=== PATIENT | female | born 1945 | race Caucasian/White ===

== ENCOUNTER → 2016-10-14 | Outpatient (CLI) | payer BC ==
[~2016-10-14] MED LIST: ASCO500T3 PO; CONJ0.3T3 PO; HYDC25 PO; LISI5TAB3 PO; MAGN400T6 PO; MCR25 PO; MELOPOW PO; METF1TAB53 PO; OFLO0.3S4 OPR; PRED1SUS3 OPR; SIMV80TA2 PO; SYMIN160 INH
[2016-10-14 10:05] LABS: ESTIMATED AVERAGE GLUCOSE 186 mg/dl; HA1C FLAG Normal (Normal)
== END | disposition home or self-care (01) ==
LOC: C.LAB1850 08:33
PROVIDERS: ATTEND Internal Medicine
DX: J45.909 Unspecified asthma, uncomplicated (principal)

== ENCOUNTER → 2016-11-08 | Outpatient (CLI) | payer BC ==
--- NOTE | 2016-11-08 10:11 | DIAGNOSTIC IMAGING REPORT ---
KNEES, AP STANDING, RIGHT KNEE 3 VIEWS, LEFT KNEE 3 VIEWS CLINICAL HISTORY: ARTHRITIS. Bilateral knee pain. COMPARISON STUDY: Right knee 07/03/2013. FINDINGS: No fracture or dislocation within the right or left knee. Bilateral chondrocalcinosis and tricompartmental marginal osteophytes. Mild cartilage space narrowing within the lateral compartment of the left knee. Trace bilateral knee effusions. Calcifications within the suprapatellar joint space on the left may be due to intra-articular loose bodies. IMPRESSION: Bilateral chondrocalcinosis with superimposed mild tricompartmental osteoarthritis within the knees. There are also trace bilateral knee effusions. Electronically signed by: Ronnell Todd M.D. 11/08/2016 10:09 AM Dictated Date/Time: 11/08/2016 10:06 AM
--- NOTE | 2016-11-08 10:12 | DIAGNOSTIC IMAGING REPORT ---
LEFT ANKLE 3 VIEWS HISTORY: Left ankle pain. M25.569 Joint pain, kneeL40.50 Psoriatic [id number] Lumba COMPARISON: None. FINDINGS: There is no fracture or dislocation. Mild soft tissue swelling. No bony erosions. Mild cartilage space narrowing at the tibiotalar joint consistent with degenerative change. No radiopaque foreign bodies. Plantar heel spur. Calcification within the Achilles tendon consistent with a chronic tendinosis. IMPRESSION: Mild soft tissue swelling and mild osteoarthritis within the left ankle. No fractures. Chronic Achilles tendinosis. Electronically signed by: Ronnell Todd M.D. 11/08/2016 10:10 AM Dictated Date/Time: 11/08/2016 10:09 AM
--- NOTE | 2016-11-08 10:13 | DIAGNOSTIC IMAGING REPORT ---
LEFT HAND MIN 3 VIEWS ROUTINE CLINICAL HISTORY: Left hand pain. Psoriatic arthropathy. COMPARISON: None. DISCUSSION: There is chondrocalcinosis at the level of the trigone fibrocartilage. There are osteoarthritic changes at the level the first carpometacarpal joint and interphalangeal joint of the thumb. There are no acute fractures. There is no erosive disease. There are subtle sclerotic changes involving the chito of the distal phalanges. IMPRESSION: 1. No acute fractures or dislocations 2. Degenerative type changes most pronounced the level of the first carpal metacarpal joint 3. No evidence of erosive disease 4. Calcification of the triangle fibrocartilage 5. Slight sclerosis involving the chito of the distal phalanges Electronically signed by: Raghu Roque M.D. 11/08/2016 10:10 AM Dictated Date/Time: 11/08/2016 10:09 AM
== END | disposition home or self-care (01) ==
LOC: C.RAD1850 09:25
PROVIDERS: ATTEND Internal Medicine Rheumatology
DX: L40.50 Arthropathic psoriasis, unspecified (principal); M25.569 Pain in unspecified knee; M54.16 Radiculopathy, lumbar region; M11.261 Other chondrocalcinosis, right knee; M11.262 Other chondrocalcinosis, left knee; M18.12 Unilateral primary osteoarthritis of first carpometacarpal joint, left hand; M24.132 Other articular cartilage disorders, left wrist; M76.62 Achilles tendinitis, left leg

== ENCOUNTER → 2017-02-06 | Outpatient (CLI) | payer BC | END | disposition home or self-care (01) | LOC: C.RDSM 13:13 | PROVIDERS: ATTEND Physical Medicine & Rehabilitation Sports Medicine | DX: M17.0 Bilateral primary osteoarthritis of knee (principal) ==

== ENCOUNTER → 2017-04-06 | Outpatient (CLI) | payer BC ==
[2017-04-06 09:37] LABS: HEMATOCRIT 40.3 % (37-47); MEAN CELL VOLUME 84.7 fL (80-100); MEAN CORPUSCULAR HEMOGLOBIN 28.8 pg (25-34); MEAN PLATELET VOLUME 10.8 fL (7.4-10.4); PLATELET COUNT 268 K/uL (130-400); RED BLOOD COUNT 4.76 M/uL (4.2-5.4)
[2017-04-06 09:45] LABS: URINE APPEARANCE CLEAR (CLEAR); URINE BILIRUBIN NEG (NEG); URINE COLOR YELLOW; URINE EPITHELIAL CELL AUTO >30 /lpf (0-5); URINE NITRITE NEG (NEG); URINE PH 6.5 (4.5-7.5); UROBILINOGEN NEG (NEG); ZZUR CULT IF INDIC CLEAN CATCH YES
[2017-04-06 09:54] LABS: ESTIMATED AVERAGE GLUCOSE 177 mg/dl; HA1C FLAG Normal (Normal)
[2017-04-06 10:02] LABS: MANUAL MICROSCOPIC REQUIRED? NO; REVIEW REQ? NO
[2017-04-06 10:16] LABS: CHOLESTEROL/HDL RATIO 3.3; THYROID STIMULATING HORMONE 1.87 uIu/ml (0.300-4.500)
== END | disposition home or self-care (01) ==
LOC: C.LAB1850 08:03
PROVIDERS: ATTEND Internal Medicine
DX: N20.0 Calculus of kidney (principal); E11.9 Type 2 diabetes mellitus without complications; E78.00 Pure hypercholesterolemia, unspecified; I10 Essential (primary) hypertension

== ENCOUNTER → 2017-10-13 | Outpatient (CLI) | payer OTHER ==
[2017-10-13 10:29] LABS: HEMOGLOBIN A1C 7.9 % (4.5-5.6)
== END | disposition home or self-care (01) ==
LOC: C.LAB1850 07:46
PROVIDERS: ATTEND Internal Medicine
DX: E78.00 Pure hypercholesterolemia, unspecified (principal)

== ENCOUNTER → 2017-11-03 | Outpatient (CLI) | payer OTHER ==
--- NOTE | 2017-11-06 08:07 | MAMMOGRAPHY REPORT ---
BILATERAL DIGITAL SCREENING MAMMOGRAM TOMOSYNTHESIS WITH CAD: 11/03/2017 CLINICAL HISTORY: Routine screening. Patient has no complaints. TECHNIQUE: Breast tomosynthesis in addition to standard 2D mammography was performed. Current study was also evaluated with a Computer Aided Detection (CAD) system. COMPARISON: Comparison is made to exams dated: 05/12/2016 mammogram and 05/11/2009 mammogram - [facility]. BREAST COMPOSITION: The tissue of both breasts is heterogeneously dense, which may obscure small mas ses. FINDINGS: There are grouped calcifications within the right 12:00 breast, for which magnification vie ws are recommended for further evaluation. Additionally, there are other calcifications seen within the left breast which appear more scattered in distribution, however, spot magnification views are re commended. Additionally, there is an asymmetry within the right medial breast middle depth on the cc view, for which spot compression tomosynthesis views and possible breast ultrasound are recommended. The remainder of both breasts are stable compared to prior exams, without suspicious masses, calcific ations, or areas of architectural distortion noted. IMPRESSION: ACR BI-RADS CATEGORY 0: INCOMPLETE EVALUATION: NEED ADDITIONAL IMAGING EVALUATION Bilateral breast calcifications and right breast asymmetry, for which additional imaging evaluation i s recommended. The patient will be called to schedule an appointment. Approximately 10% of breast cancers are not detected with mammography. A negative mammographic report should not delay biopsy if a clinically suggestive mass is present. Harmony Nesbitt M.D. /:11/03/2017 16:27:44 Outsoles Channel Opener: Shirlene ADKINS(Saloni)(Jules)(JAYMIE), [facility] letter sent: Addl Imaging 0 BI-RADS Code: ACR BI-RADS Category 0: Incomplete Evaluation: Need Additional Imaging Evaluation
== END | disposition home or self-care (01) ==
LOC: C.MAMM 11:06
PROVIDERS: ATTEND Internal Medicine
DX: Z12.31 Encounter for screening mammogram for malignant neoplasm of breast (principal); R92.1 Mammographic calcification found on diagnostic imaging of breast

== ENCOUNTER → 2017-11-14 | Outpatient (CLI) | payer OTHER ==
--- NOTE | 2017-11-14 15:22 | MAMMOGRAPHY REPORT ---
BILATERAL DIGITAL DIAGNOSTIC MAMMOGRAM TOMOSYNTHESIS AND TARGETED RIGHT ULTRASOUND: 11/14/2017 CLINICAL HISTORY: 72-year-old woman called back from screening mammography for bilateral microcalcifi cations and right medial asymmetry. TECHNIQUE: Spot magnification CC and ML views of each breast; spot compression tomosynthesis right CC and MLO views were obtained. COMPARISON: Comparison is made to exams dated: 11/03/2017 mammogram, 05/12/2016 mammogram, 05/11/2009 mammogram, 05/02/2006 mammogram, and 05/26/2003 mammogram - [facility]. BREAST COMPOSITION: The tissue of both breasts is heterogeneously dense, which may obscure small mas ses. FINDINGS: The spot magnification views of the right breast demonstrates a 4.8 mm cluster of amorphous microcalcifications in the 12:00 middle one third of the breast, with associated asymmetry best appr eciated in the CC projection. These calcifications are increasingly conspicuous comparing to prior m ammograms and are indeterminate. Spot magnification views of the left breast demonstrate a few benign rim calcifications a loose group ing of round microcalcifications in the middle one third of the breast along the posterior nipple janice e on the cc view and a small grouping of faint punctate microcalcifications in the far posterior left breast along the posterior nipple line on the cc view. These are not definitely seen in the ML proj ection. No dominant suspicious cluster of calcifications is currently seen in the left breast. No o bvious mass or architectural distortion. The spot compression tomosynthesis views of the right breast demonstrate 2 probable oval circumscribe d masses in the lower inner right breast. Further evaluation with ultrasound was performed. Targeted ultrasound was performed in the medial right breast including the 12:00 and 6:00 axes. In t he 3:00 breast, 1 cm from the nipple, there is a round oval circumscribed anechoic benign simple cyst measuring 3.8 x 3.6 x 3.5 mm. Another oval cyst versus focal duct ectasia in the 1:00 right breast, 2 cm from the nipple measures 8.6 x 2.6 x 8.1 mm. There is duct ectasia in the retroareolar right b reast as well. There is fusiform prominence of a duct versus a cyst in the 1230 right breast, 1 cm f rom the nipple with internal echogenic debris and punctate reflectors, likely representing clustered microcalcifications. In total this cystic-appearing mass with internal debris measures 6.2 x 3.0 x 7 .8 mm and this location may correlate with the clustered amorphous calcifications seen mammographical ly. Therefore, could perform ultrasound-guided core biopsy and specimen radiography of this lesion a nd assess post procedure mammograms to ensure it aligns with the mammographic calcifications. This c ould represent an intraductal mass such as a papilloma. DCIS is another consideration for an intracy stic/intraductal mass. IMPRESSION: ACR BI-RADS CATEGORY 4: SUSPICIOUS, TARGETED ULTRASOUND ACR BI-RADS CATEGORY 4: SUSPICIO US 1. There is an indeterminate 4.8 mm cluster of amorphous microcalcifications in the 12:[address], that is thought to be identified in the 12:30 right breast, 1 cm from the nipple, on ultrasound i n which the calcifications appear to be located within a cyst or dilated duct. Ultrasound-guided cor e biopsy and specimen radiography is recommended. Correlation with postprocedure mammograms is also recommended to ensure this lesion correlates with the mammographic calcifications. 2. The persistent circumscribed mass versus masses in the medial right breast mammographically are t hought to correspond with areas of focal duct ectasia and benign simple cysts on ultrasound. 3. There are loose groupings of round and punctate microcalcifications in the left breast along the posterior nipple line on the CC view that probably represent benign fibrocystic change, but were not clearly seen on prior mammograms to ensure long-term stability. Pending benign pathology results in the right breast, would recommend short interval follow-up left diagnostic mammograms including spot magnification views to ensure stability of the left breast calcifications. These results and recommendations were discussed with the patient at the time of the exam. She tenta tively scheduled the right breast biopsy prior to leaving our department. Approximately 10% of breast cancers are not detected with mammography. A negative mammographic report should not delay biopsy if a clinically suggestive mass is present. Tessie Lemus M.D. ay/:11/14/2017 14:50:31 Real Estate Valuer: Valeria GARBER)Lilia), [facility] letter sent: Abnormal 4/5 BI-RADS Code: ACR BI-RADS Category 4: Suspicious Ultrasound BI-RADS: ACR BI-RADS Category 4: Suspici ous
== END | disposition home or self-care (01) ==
LOC: C.MAMM 08:21
PROVIDERS: ATTEND Internal Medicine
DX: R92.0 Mammographic microcalcification found on diagnostic imaging of breast (principal); R92.8 Other abnormal and inconclusive findings on diagnostic imaging of breast

== ENCOUNTER → 2017-11-22 | Outpatient (CLI) | payer OTHER ==
--- NOTE | 2017-11-22 09:33 | Discharge Instructions ---
Discharge Instructions Procedure Procedure Date: November 22, 2017. Reason for visit: Right Intracystic Mass W/Calcs. Discharge Discharge Date: November 22, 2017. Discharge Diagnosis: status post breast biopsy Instructions Activity Recommendations: Additional Limitations (see below) Return to School/Work: no limitations Recommended Home Diet: No Limitations Provider Instructions: ACTIVITY RECOMMENDATIONS: * No lifting, pushing, pulling or exercising the affected side for three days. RETURN TO SCHOOL/WORK: * You may return to work/school after the procedure, but do not perform any strenuous activities for 24 to 48 hours. MEDICATIONS: * Tylenol (two 325 mg) every four to six hours if needed for mild pain (if not allergic to Tylenol). DIET: * Resume previous diet. SPECIAL CARE INSTRUCTIONS: * Keep biopsy site dry for 24 hours. May shower after 24 hours, but do not soak (bathe) incision. * May remove Tegaderm (plastic patch) tomorrow AFTER showering. * Leave the steri-strips on for one week. Allow the steri-strips to fall off by themselves. If not off after one week, you may remove them. You may place a Bandaid crosswise over the strips, if desired. * Apply ice 10 minutes on and 10 minutes off as needed. * Wear a bra at bedtime to sleep more comfortably for 2-3 days. * Your referring physician should have the results after approximately 5 to 7 business days. * Call for unusual bleeding, fever, drainage, etc or if you have any questions call during normal business hours or after hours call Dr Nesbitt, [phone]. FOLLOW UP VISIT: Follow-up with Referring Physician as scheduled. Allergies Coded Allergies: Iodinated Contrast Media (Verified Allergy, Severe, RESP DISTRESS Hives, 06/24/15) Iodine (Verified Allergy, Severe, RESP DISTRESS Hives, 06/24/15) Jerod Taylor Recommendations: Call your doctor if: * Temperature above 101 degrees * Pain not relieved by pain medicine ordered * There is increased drainage or redness from any incision * You have any unanswered questions or concerns. Your Doctors Instructions noted above were prepared by provider Harmony Nesbitt. Patient Signature Section: Patient Instructions Signature Page Anju Trinidad Patient (or Guardian) Signature/Date: I have read and understand the instructions given to me by my caregivers. Caregiver/RN/Doctor Signature/Date: The above-named patient and/or guardian has received patient instructions on this date. + Original Patient Signature Page (only) stays with chart. Please make copy for patient.
--- NOTE | 2017-11-22 15:04 | MAMMOGRAPHY REPORT ---
ULTRASOUND GUIDED BIOPSY RIGHT BREAST: 11/22/2017 CLINICAL HISTORY: Right 12:30 breast mass with associated calcifications. PATIENT CONSENT: The procedure, risks and benefits were discussed with the patient and informed writt en consent was obtained. A timeout was performed immediately prior to the procedure. PROCEDURE DESCRIPTION: With ultrasound guidance, aseptic technique, and lidocaine as the local anesth etic (1% lidocaine to anesthetize the skin and 1% lidocaine with epinephrine to anesthetize the deepe r tissues), the mass of concern in the right 12:30 breast, 1 cm from the nipple, was sampled a total of 6 times with a 14-gauge Achieve biopsy needle. Immediately thereafter, with ultrasound guidance, aseptic technique, and lidocaine as the local anesthetic, a ribbon-shaped metallic localizer clip was placed centrally in the mass. Direct pressure was applied to the site immediately post procedure an d hemostasis was achieved. A specimen radiograph was performed of the samples, which shows no clear calcifications to be present within the samples. Postprocedure unilateral mammograms were performed to confirm clip placement; the mammograms show that the biopsied mass does not clearly align with th e mammographic calcifications. The patient tolerated the procedure without complication. She was gi sylvain wound care instructions. The specimens were sent to pathology for analysis. COMPARISON: Comparison is made to exams dated: 11/14/2017 mammogram, 11/14/2017 ultrasound, 11/03/2017 ma mmogram, 05/12/2016 mammogram, 05/11/2009 mammogram, and 05/02/2006 mammogram - [facility]. IMPRESSION: ULTRASOUND GUIDED BIOPSY Ultrasound-guided core needle biopsy of the right 12:30 breast mass on ultrasound, with clip placemen t. No clear calcifications were seen on the specimen radiograph of the mass. Additionally, postproc edural mammograms show that the biopsy clip does not clearly line up with the mammographic calcificat ions, therefore, the biopsied sonographic mass does not correlate with the mammographic calcification s. Therefore, the mammographic calcifications remain indeterminate and stereotactic biopsy is recomm ended for further evaluation. The patient will receive pathology results from her referring provider . The patient will return later the same day for the stereotactic biopsy. Harmony Nesbitt M.D. /:11/22/2017 11:14:21 Ditch Cleaner: Allyson GARBER)(M), [facility]
--- NOTE | 2017-11-22 15:04 | MAMMOGRAPHY REPORT ---
STEREOTACTIC GUIDED BIOPSY RIGHT BREAST: 11/22/2017 CLINICAL HISTORY: Indeterminate calcifications in the right 12:00 breast. PATIENT CONSENT: The procedure, risks, benefits, and alternatives of stereotactic biopsy with clip pl acement were discussed with the patient, and verbal and written consent was obtained. A timeout was performed immediately prior to the procedure. PROCEDURE DESCRIPTION: With stereotactic guidance, aseptic technique, and lidocaine as a local anesth etic (1% lidocaine to anesthetize the skin and 1% lidocaine with epinephrine to anesthetize the deepe r tissues), the calcifications of concern in the right 12:00 breast were sampled multiple times with a 9-gauge vacuum-assisted biopsy needle ([employer]). The path of approach was medial. The specime n radiograph demonstrates calcifications to be present in the samples. A metallic marker clip (dumbb ell-shaped) was placed at the biopsy site. This was confirmed on postprocedure mammograms. Direct p ressure was applied at the biopsy site and hemostasis was readily achieved. The patient tolerated th e procedure without complication. She was given wound care instructions. COMPARISON: Comparison is made to exams dated: 11/14/2017 mammogram, 11/14/2017 ultrasound, 11/03/2017 ma mmogram, 05/12/2016 mammogram, 05/11/2009 mammogram, and 05/02/2006 mammogram - [facility]. IMPRESSION: STEREOTACTIC GUIDED BIOPSY Stereotactic biopsy of indeterminate calcifications in the right 12:00 breast, with clip placement. The patient will receive pathology results from her referring provider. Harmony Nesbitt M.D. ah/:11/22/2017 12:04:09 Attending Technologist: Allyson Apple RT(R)(M), [facility] Pain Coordinator: Malgorzata Gore RT(R)(M), [facility]
--- NOTE | 2017-11-22 15:08 | MAMMOGRAPHY REPORT ---
UNILATERAL RIGHT DIGITAL DIAGNOSTIC MAMMOGRAM TOMOSYNTHESIS: 11/22/2017 CLINICAL HISTORY: Status post right breast biopsy. TECHNIQUE: Breast tomosynthesis in addition to standard 2D mammography was performed. Postprocedura l right CC and ML 2D and tomosynthesis images were obtained. COMPARISON: Comparison is made to exams dated: 11/14/2017 mammogram, 11/14/2017 ultrasound, 11/03/2017 ma mmogram, 05/12/2016 mammogram, 05/11/2009 mammogram, and 05/02/2006 mammogram - [facility]. BREAST COMPOSITION: The tissue of the right breast is heterogeneously dense, which may obscure small masses. FINDINGS: A new ribbon-shaped biopsy marker clip is seen at the site of the biopsied mass in the righ t 12:30 breast. A new dumbbell-shaped biopsy marker clip is seen at the site of the biopsied calcifi cations in the right 12:00 breast. No significant postbiopsy hematoma is seen. IMPRESSION: POST PROCEDURE IMAGING FOR MARKER PLACEMENT New biopsy marker clips status post right breast biopsies. Pathology results are pending. Approximately 10% of breast cancers are not detected with mammography. A negative mammographic report should not delay biopsy if a clinically suggestive mass is present. Harmony Nesbitt M.D. ah/:11/22/2017 12:45:07 Manager Biostatistics: Allyson GARBER)(M), [facility] BI-RADS Code: Post Procedure Imaging For Marker Placement
== END | disposition home or self-care (01) ==
LOC: C.MAMM 08:48
PROVIDERS: ATTEND Internal Medicine
DX: R92.0 Mammographic microcalcification found on diagnostic imaging of breast (principal); N63.10 Unspecified lump in the right breast, unspecified quadrant; N60.11 Diffuse cystic mastopathy of right breast; N60.91 Unspecified benign mammary dysplasia of right breast